=== PATIENT | male | born 1955 | race Caucasian/White ===

== ENCOUNTER 2017-01-17 05:31 | Inpatient (IN) | payer OTHER ==
[2017-01-16 08:48] LABS: HEMATOCRIT 53.4 % (39.2-51.8); HEMOGLOBIN 17.8 g/dL (13.7-18.0); WHITE BLOOD COUNT 15.4 x10^3/uL (3.4-10)
[~2017-01-17] VITALS: Ht 172.7 cm; Wt 95.2 kg
[~2017-01-17 05:31] MED LIST: ACID REDUCER; MULT-257 PO
[2017-01-17] MEDS ORDERED: LACTATED RINGERS 1,000 ML IV SCH (06:45)
[2017-01-17] MEDS ORDERED: BUPIVACAINE/PF 0.25% ONE (06:54)
[2017-01-17] MEDS ORDERED: VANCOMYCIN 1,000 MG ONE ×2 (06:54→09:27)
[2017-01-17] MEDS ORDERED: THROMBIN 5,000 UNIT VIAL TP ONE (06:54)
[2017-01-17] MEDS ORDERED: LIDOCAINE/PF 0.5% ,50ML ONE (06:54)
[2017-01-17] MEDS ORDERED: EPINEPHRINE 1 MG/ML, 1ML ONE (06:55)
[2017-01-17] MEDS ORDERED: FENTANYL PF 100 MCG/2ML ONE ×3 (06:56→10:37)
[2017-01-17] MEDS ORDERED: MIDAZOLAM 1 MG/ML, 2ML ONE (06:56)
[2017-01-17] MEDS ORDERED: GLYCOPYRROLATE 0.2MG/1ML, 5ML ONE (06:59)
[2017-01-17] MEDS ORDERED: CEFAZOLIN 1,000 MG ONE (06:59)
[2017-01-17] MEDS ORDERED: NEOSTIGMINE 1 MG/ML, 10ML ONE (06:59)
[2017-01-17] MEDS ORDERED: ROCURONIUM 10 MG/ML ONE ×2 (06:59)
[2017-01-17] MEDS ORDERED: HYDROmorphone 1 MG/ML, 1ML ONE ×2 (06:59→09:14)
[2017-01-17] MEDS ORDERED: ONDANSETRON 2MG/ML, 2ML ONE (06:59)
[2017-01-17] MEDS ORDERED: DEXAMETHASONE 4 MG/ML, 1ML ONE (06:59)
[2017-01-17] MEDS ORDERED: PROPOFOL 10 MG/ML, 20ML ONE (06:59)
[2017-01-17] MEDS ORDERED: SUCCINYLCHOLINE 20 MG/ML, 10ML ONE ×2 (06:59→07:00)
[2017-01-17] MEDS ORDERED: ACETAMINOPHEN 325 MG TABLET PO PRN ×2 (07:00→13:00)
[2017-01-17] MEDS ORDERED: ONDANSETRON 2MG/ML, 2ML IVPush PRN (07:00)
[2017-01-17] MEDS ORDERED: PROMETHAZINE 25 MG/ML, 1ML IV PRN (07:00)
[2017-01-17] MEDS ORDERED: OXYcodone 5 MG/5 ML ORAL.SOL UDC PO PRN (07:00)
[2017-01-17] MEDS ORDERED: HYDROcodone/APAP 7.5-325MG/15ML UDC PO PRN (07:00)
[2017-01-17] MEDS ORDERED: FENTANYL PF 100 MCG/2ML IV PRN (07:00)
[2017-01-17] MEDS ORDERED: HYDROmorphone 1 MG/ML, 1ML IV PRN (07:00)
[2017-01-17] MEDS ORDERED: LABETALOL 5MG/ML, 20ML IV PRN (07:00)
[2017-01-17] MEDS ORDERED: LIDOCAINE GEL 2%, 5ML ONE (07:01)
[2017-01-17 07:11] VITALS: BP 137/87
[2017-01-17 07:14] LABS: HEMATOCRIT 51.7 % (39.2-51.8); HEMOGLOBIN 17.5 g/dL (13.7-18.0); WHITE BLOOD COUNT 15.7 x10^3/uL (3.4-10)
[2017-01-17] MEDS ORDERED: LABETALOL 5MG/ML, 20ML ONE (10:07)
[2017-01-17] MEDS ORDERED: ACETAMINOPHEN 650 MG/20.3 ML UDC ONE (10:37)
[2017-01-17] MEDS ORDERED: OXYcodone 5 MG/5 ML ORAL.SOL UDC ONE (10:37)
[2017-01-17] MEDS ORDERED: ACETAMINOPHEN 650 MG SUPP PR PRN (13:00)
[2017-01-17] MEDS ORDERED: DIPHENHYDRAMINE 50 MG/ML, 1ML IVPush PRN (13:00)
[2017-01-17] MEDS ORDERED: ONDANSETRON 2MG/ML, 2ML IV PRN (13:00)
[2017-01-17] MEDS ORDERED: PROMETHAZINE 25 MG/ML, 1ML IM PRN (13:00)
[2017-01-17] MEDS ORDERED: MAGNESIUM HYDROXIDE 8%, 30ML UDC PO PRN (13:00)
[2017-01-17 13:38] VITALS: BP 137/81
[2017-01-17] MEDS ORDERED: CEFAZOLIN PMX 1GM/50ML 50 ML IVPB SCH (14:00)
[2017-01-17] MEDS: OXYcodone/APAP 5/325MG TABLET PO PRN (14:50)
[2017-01-17] MEDS: D5%-0.9% NACL+KCL 20MEQ 1,000 ML IV SCH (15:59)
[2017-01-17] MEDS: CEFAZOLIN PMX 1GM/50ML 50 ML IVPB SCH ×2 (15:59→23:50)
[2017-01-17 19:56] VITALS: BP 144/83
[2017-01-18] MEDS: morphine SULFATE 10 MG/ML, 1ML IV PRN ×3 (00:11→07:52)
[2017-01-18 00:17] VITALS: BP 127/73
[2017-01-18] MEDS: D5%-0.9% NACL+KCL 20MEQ 1,000 ML IV SCH (02:49)
[2017-01-18 03:32] VITALS: BP 129/73
[2017-01-18 07:23] VITALS: BP 119/75
[2017-01-18] MEDS ORDERED: MORPHINE SULFATE 4 MG/ML, 1ML ONE (07:49)
[2017-01-18] MEDS ORDERED: SENNA/DOCUSATE TABLET PO SCH (09:00)
[2017-01-18] MEDS: OXYcodone/APAP 5/325MG TABLET PO PRN (09:57)
[2017-01-18] MEDS ORDERED: OXYcodone/APAP 5/325MG TABLET PO PRN (10:21)
[2017-01-18] MEDS ORDERED: CEPHALEXIN 500 MG CAPSULE PO SCH (10:30)
[2017-01-18] MEDS ORDERED: MAGNESIUM HYDROXIDE 8%, 30ML UDC PO ONE (11:00)
[2017-01-18 12:13] VITALS: BP 150/84
[2017-01-18] MEDS ORDERED: OXYC5CAP2 PO (12:31)
[2017-01-18] MEDS ORDERED: CEPH-368 PO (12:31)
[2017-01-18] MEDS ORDERED: ONDA4TAB7 PO (12:32)
== END 2017-01-18 13:00 | disposition home or self-care (01) | DRG 473 ==
LOC: ORIP 05:31 → 4NOR 11:45 → DCLOUNGE 01-18 12:26
PROVIDERS: ADMIT Orthopaedic Surgery Orthopaedic Surgery of the Spine; ATTEND Orthopaedic Surgery Orthopaedic Surgery of the Spine
PROC: 0RB30ZZ Excision of Cervical Vertebral Disc, Open Approach (ICD-10-PCS; 2017-01-17)
PROC: 0RG10K0 Fusion of Cervical Vertebral Joint with Nonautologous Tissue Substitute, Anterior Approach, Anterior Column, Open Approach (ICD-10-PCS; principal; 2017-01-17 07:30)
DX: M48.02 Spinal stenosis, cervical region (principal); M50.223 Other cervical disc displacement at C6-C7 level; D72.829 Elevated white blood cell count, unspecified
CPT/HCPCS: 36415; 72040; 85025; C1713; J0171; J0690; J1100; J1170; J2001; J2250; J2405; J2704; J2710; J3010; J3370; J3490; C1762; J0330; J2270; J3480; J7120